=== PATIENT | male | born 1955 ===

== ENCOUNTER 2023-10-19 05:22 | Inpatient (IN) | payer OTHER ==
[2023-10-13 09:54] LABS: HEMATOCRIT 41.2 % (39.0-48.0); HEMOGLOBIN 14.2 g/dL (13-16.00); MEAN CELL VOLUME 89.9 fL (80.0-100.00); MEAN CORPUSCULAR HEMOGLOBIN 30.9 pg (27.00-32.0); MEAN CORPUSCULAR HGB CONC 34.4 g/dl (32.0-36.0); PLATELET COUNT 226 K/uL (150-450); RED BLOOD COUNT 4.58 M/uL (4.00-6.00); RED CELL DISTRIBUTION WIDTH 13.9 % (11.5-14.5)
[2023-10-13 10:20] LABS: INR 0.95; PARTIAL THROMBOPLASTIN TIME 23.6 SECONDS (22.0-34.0)
[2023-10-13 10:26] LABS: CALCIUM 11.9 mg/dL (8.5-10.1); CREATININE SERUM 1.15 mg/dL (0.70-1.30); GFR 63.24; POTASSIUM 4.64 mEq/L (3.5-5.1)
[2023-10-13 10:46] LABS: PH,URINE 5.5 (5.0-8.0); URINE APPEARANCE Clear; URINE BILIRRUBIN Negative (NEGATIVE); URINE BLOOD Negative; URINE COLOR Yellow; URINE GLUCOSE Negative (NEGATIVE); URINE LEUKOCYTE Negative; URINE NITRATE Negative; URINE PROTEIN Negative (NEGATIVE); URINE UROBILINOGEN 0.2 E.U./dl
[2023-10-13 10:51] LABS: URINE RBC 2.5 uL (0.0-20.8); URINE WBC 2.4 uL (0.0-23.2)
[2023-10-13 11:04] LABS: URINE BACTERIA 3.7 uL (0.0-1933); URINE EPITHELIAL CELLS 1.3 uL (0.0-38.8)
[~2023-10-19] VITALS: Ht 167.6 cm; Wt 104.3 kg
[~2023-10-19 05:22] MED LIST: COZAAR100 MG PO; LASIX20 MG; METFORMIN HCL500 M3; SIMVASTATIN80 MG
[2023-10-20 08:03] LABS: HEMOGLOBIN 12.6 g/dL (13-16.00); MEAN CELL VOLUME 89.1 fL (80.0-100.00); MEAN CORPUSCULAR HEMOGLOBIN 30.4 pg (27.00-32.0); MEAN CORPUSCULAR HGB CONC 34.1 g/dl (32.0-36.0); PLATELET COUNT 211 K/uL (150-450); RED BLOOD COUNT 4.15 M/uL (4.00-6.00); RED CELL DISTRIBUTION WIDTH 14.4 % (11.5-14.5)
[2023-10-20 08:24] LABS: ALBUMIN 3.5 gm/dL (3.4-5.0); CREATININE SERUM 1.37 mg/dL (0.70-1.30); GFR 51.67; PHOSPHOROUS 3.1 mg/dL (2.5-4.9); POTASSIUM 4.78 mEq/L (3.5-5.1)
== END 2023-10-20 13:56 | disposition home or self-care (01) | DRG 708 ==
LOC: CIR.AMB 05:22 → SURG 18:58
PROVIDERS: ADMIT Urology; ATTEND Urology
PROC: 07BC4ZZ Excision of Pelvis Lymphatic, Percutaneous Endoscopic Approach (ICD-10-PCS; 2023-10-19)
PROC: 8E0W4CZ Robotic Assisted Procedure of Trunk Region, Percutaneous Endoscopic Approach (ICD-10-PCS; 2023-10-19)
PROC: 0VT04ZZ Resection of Prostate, Percutaneous Endoscopic Approach (ICD-10-PCS; principal; 2023-10-19 07:00)
DX: C61 Malignant neoplasm of prostate (principal); Z20.822 Contact with and (suspected) exposure to COVID-19
CPT/HCPCS: 55866; 38571; S2900